=== PATIENT | male | born 1990 | race Two or more races ===

== ENCOUNTER 2020-05-26 13:07 | Emergency (ER) | payer MEDICAID ==
[~2020-05-26] VITALS: Ht 175.3 cm; Wt 83.0 kg
[2020-05-26 13:24] VITALS: Ht 175.3 cm; Wt 83.0 kg
[2020-05-26 15:27] VITALS: BP 139/91
== END 2020-05-26 15:27 | disposition home or self-care (01) ==
LOC: ED 13:07
DX: S33.5XXA Sprain of ligaments of lumbar spine, initial encounter (principal); Z90.89 Acquired absence of other organs; X58.XXXA Exposure to other specified factors, initial encounter; Y93.89 Activity, other specified; Y92.89 Other specified places as the place of occurrence of the external cause; Y99.8 Other external cause status
CPT/HCPCS: J1885

== ENCOUNTER 2020-10-16 06:21 | Emergency (ER) | payer MEDICAID ==
[~2020-10-16] VITALS: Ht 177.8 cm; Wt 92.1 kg
[2020-10-16 06:27] VITALS: Ht 177.8 cm; Wt 92.1 kg
[2020-10-16] MEDS ORDERED: ULTRAM50 MG PO (06:50)
[2020-10-16] MEDS ORDERED: BACLOFEN10 MG PO (06:50)
[2020-10-16] MEDS ORDERED: IBU600 M2 PO (06:50)
[2020-10-16 07:12] VITALS: BP 119/87
== END 2020-10-16 07:18 | disposition home or self-care (01) ==
LOC: ED 06:21
DX: M54.9 Dorsalgia, unspecified (principal); J45.909 Unspecified asthma, uncomplicated